=== PATIENT | male | born 1995 | race Caucasian/White ===

== ENCOUNTER 2022-10-09 14:01 | Emergency (ER) | payer MEDICARE, MEDICAID ==
[~2022-10-09] VITALS: Ht 182.9 cm; Wt 77.0 kg
[2022-10-09 15:22] LABS: HEMATOCRIT. 46.6 % (42.0-52.0); HEMOGLOBIN. 16.3 g/dL (14.0-18.0); MEAN CORPUSCULAR HEMOGLOBIN 30.1 pg (28.0-32.0); MEAN CORPUSCULAR VOLUME 85.9 fL (80.0-94.0); RED BLOOD CELL COUNT 5.42 mill/uL (4.7-6.1); RED CELL DISTRIBUTION WIDTH 12.7 % (11.6-14.6)
[2022-10-09 15:27] LABS: CHLORIDE 101 mEq/L (98-107)
[2022-10-09 15:35] LABS: ETHANOL BLOOD < 10 mg/dL
[2022-10-09 16:01] LABS: MEAN PLATELET VOLUME 8.2 fl (7.4-10.4); PLATELET 176 x1000/uL (130-400)
[2022-10-09 16:03] LABS: NUCLEATED RED BLOOD CELLS 2 /100 WBC; PLATELET ESTIMATE NORMAL
[2022-10-09] MEDS ORDERED: LORAZEPAM 2MG/ML CPJ IM ONE (20:45)
[2022-10-09 21:55] LABS: CLARITY URINE CLEAR (CLEAR); COLOR URINE DARK YELLOW (YELLOW); KETONES URINE 2+ (NEGATIVE); LEUKOCYTE ESTERASE URINE TRACE (NEGATIVE); NITRITE URINE NEGATIVE (NEGATIVE); OCCULT BLOOD URINE NEGATIVE (NEGATIVE); PH URINE 6.5 (4.5-8.0); PROTEIN URINE TRACE (NEGATIVE); SPECIFIC GRAVITY URINE 1.031 (1.005-1.030)
[2022-10-09] MEDS ORDERED: HALOPERIDOL LACTATE 5MG/ML VIAL IM ONE (22:15)
[2022-10-09] MEDS ORDERED: DIPHENHYDRAMINE 50MG/ML VIAL IM ONE (22:15)
[2022-10-09 22:18] LABS: *AMPHETAMINES SCREEN URINE NEGATIVE (NEGATIVE); *BARBITURATES SCREEN URINE NEGATIVE (NEGATIVE); *BENZODIAZEPINES SCREEN URINE NEGATIVE (NEGATIVE); *COCAINE SCREEN URINE NEGATIVE (NEGATIVE); CANNABINOID URINE SCREEN NEGATIVE (NEGATIVE); METHADONE URINE SCREEN NEGATIVE (NEGATIVE); OPIATES URINE SCREEN NEGATIVE (NEGATIVE); PHENCYCLIDINE URINE SCREEN NEGATIVE (NEGATIVE)
[2022-10-10] MEDS ORDERED: HALOPERIDOL LACTATE 5MG/ML VIAL IM ONE (05:45)
[2022-10-10] MEDS: CHLORPROMAZINE HCL 25 MG TABLET PO SCH (22:30)
[2022-10-11] MEDS ORDERED: DIPHENHYDRAMINE 50MG/ML VIAL IM ONE (00:30)
[2022-10-11] MEDS ORDERED: LORAZEPAM 2MG/ML CPJ IM ONE (00:30)
[2022-10-11] MEDS ORDERED: HALOPERIDOL LACTATE 5MG/ML VIAL IM NR (02:15)
[2022-10-11] MEDS: CHLORPROMAZINE HCL 25 MG TABLET PO SCH ×3 (05:50→22:00)
[2022-10-11] MEDS: DIVALPROEX SODIUM 500MG DR TABLET PO SCH ×2 (13:22→17:00)
[2022-10-11] MEDS: HYDROXYZINE 25MG TABLET PO SCH ×2 (13:22→17:00)
[2022-10-11] MEDS ORDERED: BENZTROPINE MESYLATE 1MG TABLET PO SCH (17:00)
[2022-10-11] MEDS: BENZTROPINE MESYLATE 2MG TABLET PO SCH (18:54)
[2022-10-11] MEDS: TRAZODONE HCL 50MG TABLET PO SCH (21:23)
[2022-10-12] MEDS: CHLORPROMAZINE HCL 25 MG TABLET PO SCH ×3 (06:00→22:00)
[2022-10-12] MEDS: DIVALPROEX SODIUM 500MG DR TABLET PO SCH ×3 (09:27→17:33)
[2022-10-12] MEDS: HYDROXYZINE 25MG TABLET PO SCH ×3 (09:27→17:00)
[2022-10-12] MEDS: BENZTROPINE MESYLATE 2MG TABLET PO SCH ×2 (09:27→17:00)
[2022-10-12] MEDS: TRAZODONE HCL 50MG TABLET PO SCH (21:00)
[2022-10-13] MEDS: CHLORPROMAZINE HCL 25 MG TABLET PO SCH ×3 (08:36→21:28)
[2022-10-13] MEDS: HYDROXYZINE 25MG TABLET PO SCH ×3 (10:08→18:01)
[2022-10-13] MEDS: BENZTROPINE MESYLATE 2MG TABLET PO SCH ×2 (10:08→18:24)
[2022-10-13] MEDS: DIVALPROEX SODIUM 500MG DR TABLET PO SCH ×3 (10:08→18:02)
[2022-10-13] MEDS ORDERED: DIVALPROEX SODIUM 500MG DR TABLET PO SCH (17:00)
[2022-10-13] MEDS: TRAZODONE HCL 50MG TABLET PO SCH (18:01)
[2022-10-13] MEDS ORDERED: LORAZEPAM 1MG TABLET PO ONE (19:00)
[2022-10-13] MEDS ORDERED: LORAZEPAM 2MG/ML CPJ IM ONE (20:15)
[2022-10-13 22:00] VITALS: BP 110/70
== END 2022-10-13 22:30 ==
LOC: ER 14:01
DX: F23 Brief psychotic disorder (principal); R26.9 Unspecified abnormalities of gait and mobility; F79 Unspecified intellectual disabilities; Z20.822 Contact with and (suspected) exposure to COVID-19; Z75.1 Person awaiting admission to adequate facility elsewhere
CPT/HCPCS: 36415; 80053; 80305; 80307; 80320; 80329; 81003; 82962; 85025; 87426; 96372; 99285; C9803; J1200; J1630; J2060; Q0161; G0480